=== PATIENT | male | born 1965 | race Two or more races ===

== ENCOUNTER 2016-11-14 16:08 | Emergency (ER) | payer OTHER ==
[~2016-11-14] VITALS: Ht 165.1 cm; Wt 72.6 kg
[2016-11-14 17:08] VITALS: BP 115/78
[2016-11-14] MEDS ORDERED: PROPARACAINE HCL 0.5% OPTH(EYE) SOL 15ML OP ONE (17:45)
== END 2016-11-14 18:07 | disposition home or self-care (01) ==
LOC: ER 16:20
DX: T15.11XA Foreign body in conjunctival sac, right eye, initial encounter (principal); W45.8XXA Other foreign body or object entering through skin, initial encounter; Y93.89 Activity, other specified; Y99.8 Other external cause status; Y92.89 Other specified places as the place of occurrence of the external cause
CPT/HCPCS: 65220

== ENCOUNTER 2016-11-16 12:29 | Emergency (ER) | payer OTHER ==
[~2016-11-16] VITALS: Ht 162.6 cm; Wt 72.6 kg
[2016-11-16 12:54] VITALS: BP 116/72
== END 2016-11-16 14:58 | disposition home or self-care (01) ==
LOC: ER 12:29
DX: T15.91XD Foreign body on external eye, part unspecified, right eye, subsequent encounter (principal)

== ENCOUNTER 2021-06-05 10:01 | Emergency (ER) | payer OTHER ==
[~2021-06-05] VITALS: Ht 165.1 cm; Wt 76.7 kg
[2021-06-05] MEDS ORDERED: CYCL-837 PO (11:44)
[2021-06-05] MEDS ORDERED: IBUP800T27 PO (11:44)
[2021-06-05 12:00] VITALS: BP 103/87
== END 2021-06-05 12:12 | disposition home or self-care (01) ==
LOC: ER 10:01
DX: S29.012A Strain of muscle and tendon of back wall of thorax, initial encounter (principal); F17.210 Nicotine dependence, cigarettes, uncomplicated; Z90.89 Acquired absence of other organs; X58.XXXA Exposure to other specified factors, initial encounter; Y93.89 Activity, other specified; Y92.89 Other specified places as the place of occurrence of the external cause; Y99.8 Other external cause status
CPT/HCPCS: 72100